=== PATIENT | female | born 1940 | race Caucasian/White ===

== ENCOUNTER 2021-07-20 07:25 | Inpatient (IN) | payer OTHER, MEDICAID, SELFPAY ==
[~2021-07-20] VITALS: Ht 167.6 cm; Wt 83.5 kg
[2021-07-20 07:25] VITALS: BP_SYST 77
--- NOTE | 2021-07-20 07:25 | NUR ---
DR. SONG AT BEDSIDE FOR MSE
--- NOTE | 2021-07-20 07:26 | NUR ---
PT BIB ALS FROM SNF C/O RESPIRATORY DISTRESS. SPO2 90% AT SNF ON NRB. NONVERBAL, A/O x0 BASELINE. ARRIVED INTUBATED BY EMS BAGGED VIA BVM.
--- NOTE | 2021-07-20 07:30 | NUR ---
# 20 gauge angiocath placed to RFA. Use of asceptic technique. Opsite placed over site. Blood return noted. Flushed with 10 cc of normal saline. No evidence of infiltration noted. Patient tolerated well.
[2021-07-20] MEDS ORDERED: fentaNYL CITRATE/PF 100 MCG/2 ML AMP ONE (08:03)
--- NOTE | 2021-07-20 08:19 | NUR ---
# 16 FR Bardales catheter with use of sterile technique. Immediate return of 50 cc YELLOW urine noted. Bedside drainage bag placed below level of bladder. Urine sample collected and sent to lab. Pt tolerated procedure WELL.
--- NOTE | 2021-07-20 08:23 | NUR ---
CENTRAL LINE PLACED BY DR. SONG. XRAY AT BEDSIDE FOR CONFIRMATION.
[2021-07-20] MEDS ORDERED: fentaNYL CITRATE/PF 100 MCG/2 ML AMP IVP ONE (08:30)
[2021-07-20] MEDS ORDERED: NACL 0.9% 2,000 ML IV ONE (08:30)
[2021-07-20 08:31] LABS: BILIRUBIN,URINE NEGATIVE (NEGATIVE); BLOOD, URINE 3+ (NEGATIVE); CLARITY/URINE CLOUDY (CLEAR); COLOR,URINE YELLOW (YELLOW); GLUCOSE,URINE TRACE (NEGATIVE); KETONES,URINE TRACE (NEGATIVE); LEUKOCYTE ESTERASE ,URINE 3+ (NEGATIVE); NITRITE, URINE NEGATIVE (NEGATIVE); PROTEIN URINE TRACE (NEGATIVE); UROBILINOGEN,URINE 0.2 (0.2-1.0)
[2021-07-20] MEDS ORDERED: NOREPINEPHRINE 4 MG/4 ML VIAL IV ONE ×6 (08:31→16:52)
[2021-07-20 08:42] LABS: BASOPHILS % (AUTO) 0.6 % (0.0-2.0); HEMATOCRIT 45.5 % (36-48); HEMOGLOBIN 14.7 g/dL (12.0-16.0); LYMPHOCYTES # (AUTO) 2.4 K/uL (1.0-5.5); LYMPHOCYTES % (AUTO) 35.1 % (20.5-51.5); MEAN CORPUSCULAR HEMOGLOBIN 30 pg (27-31); MEAN CORPUSCULAR HGB CONC 32 % (32-36); MEAN CORPUSCULAR VOLUME 93 fL (79.0-98.0); MONOCYTES # (AUTO) 0.4 K/uL (0.0-1.0); MONOCYTES % (AUTO) 5.6 % (1.7-9.3); NEUTROPHILS % (AUTO) 58.7 % (40.0-70.0); PLATELET COUNT (AUTO) 327 K/uL (130-430); RED BLOOD CELL COUNT(AUTO) 4.89 MIL/uL (4.2-6.2); RED CELL DISTRIBUTION WIDTH 16.2 % (9.0-15.0); WHITE BLOOD COUNT (AUTO) 6.9 K/uL (4.8-10.8)
[2021-07-20] MEDS ORDERED: NOREPINEPHRINE BITARTRATE 4 MG in NS 246 ML IV ONE (08:45)
[2021-07-20] MEDS ORDERED: NACL 0.9% 500 ML IV ONE (08:45)
[2021-07-20] MEDS ORDERED: ACETAMINOPHEN 325 MG TABLET GT ONE (08:45)
[2021-07-20] MEDS ORDERED: NOREPINEPHRINE BITARTRATE 4 MG in NS 246 ML IV PRN (08:45)
[2021-07-20 08:52] LABS: ALANINE AMINOTRANSFERASE 70 U/L (12-78); ALBUMIN 2.8 g/dL (3.4-4.8); ANION GAP 17 (5-15); ASPARTATE AMINOTRANSFERASE 50 U/L (10-37); CHLORIDE 114 mmol/L (98-107); CREATININE 2.18 mg/dL (0.55-1.30); SODIUM SERUM 151 mmol/L (136-145); TOTAL BILIRUBIN 0.6 mg/dL (0.0-1.0); UREA NITROGEN, BLOOD 57 mg/dL (8-21)
[2021-07-20 08:56] LABS: GLUCOSE 534 mg/dL (70-99)
[2021-07-20] MEDS ORDERED: CEFEPIME 1 GM in D5W 50 ML IV ONE (09:00)
[2021-07-20] MEDS ORDERED: VANCOMYCIN HCL 1,000 MG in NS 250 ML IV ONE (09:00)
--- NOTE | 2021-07-20 09:00 | NUR ---
B/P 78/29, HR 145. Levophed drip started at 0.1 mcg/kg/min.
--- NOTE | 2021-07-20 09:05 | NUR ---
REPORT GIVEN TO KARINA HOWARD
[2021-07-20] MEDS ORDERED: IOHEXOL 350 mgI/mL, 150 ML INFUS..BTL IV ONE (09:22)
--- NOTE | 2021-07-20 10:00 | NUR ---
Unable to obtain blood pressure from multiple sites. Dr. Rajput made aware. Levophed drip rate increased to 0.2 mcg/kg/min.
[2021-07-20 10:01] LABS: BACTERIA,URINE MODERATE /HPF (None Seen); WBC,URINE 50-80 /HPF (0-3)
[2021-07-20 10:04] LABS: YEAST,URINE Moderate /HPF (None Seen)
--- NOTE | 2021-07-20 10:20 | NUR ---
Rocío anthony in EDM - 07/20/21 at 1948 by MONICO B/P 61/30, HR 125, SPO2 88%. Levophed drip rate increased to 0.2 mcg/kg/min.
[2021-07-20] MEDS ORDERED: CEFEPIME 1 GM/VIAL (MAXIPIME) ONE ×3 (10:45→19:31)
[2021-07-20] MEDS ORDERED: VANCOMYCIN HCL 1000 MG/VIAL IV ONE (10:50)
[2021-07-20] MEDS ORDERED: INSULIN REGULAR, HUMAN 10 UNITS/0.1 ML INJ IVP ONE (12:30)
[2021-07-20] MEDS: NACL 0.9% 1,000 ML IV SCH ×2 (12:45→19:54)
[2021-07-20] MEDS ORDERED: PHENYLEPHRINE HCL 50 MG in NS 245 ML IV ONE (13:00)
[2021-07-20] MEDS ORDERED: PHENYLEPHRINE HCL 10 MG/ML VIAL (NEOSYNEPHRINE) ONE (13:02)
--- NOTE | 2021-07-20 13:18 | NUR ---
HR 113, B/P 62/38, Levophed at max rate of 1 mcg/kg/min. Dr. Rajput notified. Neosynephrine drip now infusing at 0.5 mcg/kg/min.
[2021-07-20] MEDS ORDERED: ACETAMINOPHEN 650 MG SUPP.RECT RC PRN (13:45)
[2021-07-20] MEDS ORDERED: INSULIN REGULAR, HUMAN 100 UNITS/ML, 10 ML VIAL (humuLIN R) SUBCUT PRN (13:45)
[2021-07-20] MEDS ORDERED: PIPERACILLIN/TAZO 3.375/DEX-IS 50 ML IV SCH (13:45)
--- NOTE | 2021-07-20 13:47 | NUR ---
Rocío anthony in EDM - 07/20/21 at 1948 by MONICO B/P 63/32, HR 100, SPO2 88%. Levophed drip rate increased to 0.3 mcg/kg/min.
--- NOTE | 2021-07-20 14:04 | NUR ---
Rocío anthony in EDM - 07/20/21 at 1948 by MONICO B/P 62/46, HR 95, SPO2 88%. Levophed drip rate increased to 0.22 mcg/kg/min.
--- NOTE | 2021-07-20 14:11 | NUR ---
Accucheck 330 mg/dL. Humulin R Insulin 8 Units given IVP as previously ordered.
--- NOTE | 2021-07-20 14:25 | NUR ---
Dr. Griffin notified of pt.'s B/P and that Levophed and Neosynephrine are both infusing at max doses. Solumedrol 60 mg given IVP per verbal order.
[2021-07-20] MEDS ORDERED: methylPREDNISolone SOD SUCC/PF 62.5 MG/ML VIAL ONE (14:27)
[2021-07-20] MEDS ORDERED: methylPREDNISolone SOD SUCC/PF 62.5 MG/ML VIAL IVP ONE (14:30)
[2021-07-20] MEDS ORDERED: SODIUM BICARBONATE 8.4% JECT 150 MEQ in D5W 1,000 ML IVP SCH (16:30)
[2021-07-20] MEDS ORDERED: SODIUM BICARBONATE 8.4% JECT 50 MEQ/50 ML SYRINGE IVP ONE (16:30)
[2021-07-20] MEDS ORDERED: HYDROCORTISONE SOD SUCC 100 MG/2 ML VIAL IVP ONE (16:30)
[2021-07-20] MEDS ORDERED: NACL 0.9% 1,000 ML IV ONE (16:30)
[2021-07-20 17:14] LABS: ANION GAP 23 (5-15); CALCIUM 8.3 mg/dL (8.4-11.0); CREATININE 2.36 mg/dL (0.55-1.30); GLUCOSE 346 mg/dL (70-99); POTASSIUM 5.1 mmol/L (3.5-5.1); SODIUM SERUM 157 mmol/L (136-145); UREA NITROGEN, BLOOD 55 mg/dL (8-21)
[2021-07-20] MEDS ORDERED: SODIUM BICARBONATE 8.4% JECT 50 MEQ/50 ML SYRINGE ONE (17:15)
[2021-07-20 17:38] LABS: CHLORIDE 120 mmol/L (98-107)
--- NOTE | 2021-07-20 17:41 | NUR ---
Dr. Griffin called and informed of Chloride 120. No new orders received
[2021-07-20] MEDS ORDERED: methylPREDNISolone SOD SUCC/PF 62.5 MG/ML VIAL IVP SCH (18:00)
[2021-07-20] MEDS ORDERED: ALBUMIN HUMAN 25% 100 ML IV ONE (18:15)
[2021-07-20] MEDS: INSULIN REGULAR, HUMAN 100 UNITS/ML, 10 ML VIAL (humuLIN R) SUBCUT PRN ×2 (18:16→19:40)
--- NOTE | 2021-07-20 19:12 | NUR ---
Pt continues to be unresponsive, pale with cool and mottled skin. ETT secure, vent settings: A/C, 16, 450, 100, 5. Triple lumen LIJ central line with Levophed and Phenylephrine, NS at 125 mL/hr, and Bicarb drip at 125 mL/hr. G-tube patent and secure. F/C with only 200 mL cloudy yellow U/O this shift. V/S: HR 93, B/P 68/21, SPO2 86%. Dr. Ramosium aware of pt current status. Awaiting ICU bed placement. Pt report given to ANITA Feliciano.
--- NOTE | 2021-07-20 19:12 | NUR ---
Assumed care of patient at change of shift. Patient currently intubated w/ vent settings of: VT 400, fio2 100% AC 16. Patient currently on Jude/Syn gtt at 3.5mcg/kg/min=87.5ml/hr to left subclavian central line. Patient also on levophed gtt at 1.3mcg/kg/min= 205ml/hr to left subclavian central line. NaHco3 gtt at 125ml/hr to left subclavian central line. NS infusion at 125ml/hr. f/c to gravity, patient w/ gt patent. Bed to low position sr up, continue to monitor.
--- NOTE | 2021-07-20 19:35 | NUR ---
acck noted at 252 will coverage as ordered. patient started on iv abx maxipime 1gm will observe for any adverse reaction. Bed to low position sr up, continue to monitor.
[2021-07-20 19:40] VITALS: BP_SYST 63
--- NOTE | 2021-07-20 20:25 | NUR ---
patient noted w/ faint femoral pulse and no b/p. Still remains on drips and vent. MD Null on phone w/ family who stated that patient is DNR. patient family enroute to ER. Per MD Null maintain current plan but await family decision to discontinue vent and gtts.
--- NOTE | 2021-07-20 20:30 | NUR ---
patient pronounced by MD Null. Family at bedside and confirmed that patient is dnr.
--- NOTE | 2021-07-20 20:50 | NUR ---
patient family at bedside. MD Null at bedside.
[2021-07-20] MEDS ORDERED: CEFEPIME 1 GM in D5W 50 ML IV SCH (21:00)
--- NOTE | 2021-07-20 21:15 | NUR ---
Rocío chengmaribell in ED - 07/20/21 at 2123 by [email or web address] patient pronounced by MD Null. at bedside and confirmed that patient is dnr.
--- NOTE | 2021-07-20 21:45 | NUR ---
[facility] procurement agency contacted by . Case # [id number]. S/W Ketty. Patient is not a candidate for [place]. [place] [facility] [place] [facility]
--- NOTE | 2021-07-20 21:58 | NUR ---
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 Family notified by MD Null.
--- NOTE | 2021-07-20 22:20 | NUR ---
Erich Tyler called s/w karen [phone]. poultry picker of patient remains (body) in approx 2 hours Nursing want ad supervisor notified.
--- NOTE | 2021-07-20 23:28 | NUR ---
patient placed in morgue body bag (right toe tied, tag outside of bag, personal effects with patient).
== END 2021-07-20 23:33 | DRG 871 ==
LOC: SED 07:25 → STU 12:41 → SIC 21:47
PROVIDERS: ADMIT Family Medicine; ATTEND Family Medicine
PROC: 5A1935Z Respiratory Ventilation, Less than 24 Consecutive Hours (ICD-10-PCS; principal; 2021-07-20)
PROC: 02HV33Z Insertion of Infusion Device into Superior Vena Cava, Percutaneous Approach (ICD-10-PCS; 2021-07-20)
PROC: B548ZZA Ultrasonography of Superior Vena Cava, Guidance (ICD-10-PCS; 2021-07-20)
PROC: 0BH17EZ Insertion of Endotracheal Airway into Trachea, Via Natural or Artificial Opening (ICD-10-PCS; 2021-07-20)
DX: A41.9 Sepsis, unspecified organism (principal); R65.21 Severe sepsis with septic shock; J96.00 Acute respiratory failure, unspecified whether with hypoxia or hypercapnia; N39.0 Urinary tract infection, site not specified; N17.9 Acute kidney failure, unspecified; E86.0 Dehydration; E11.9 Type 2 diabetes mellitus without complications; I25.10 Atherosclerotic heart disease of native coronary artery without angina pectoris; E78.5 Hyperlipidemia, unspecified; Z20.822 Contact with and (suspected) exposure to COVID-19; I10 Essential (primary) hypertension; F03.90 Unspecified dementia, unspecified severity, without behavioral disturbance, psychotic disturbance, mood disturbance, and anxiety; Z88.0 Allergy status to penicillin; Z79.899 Other long term (current) drug therapy
CPT/HCPCS: 71045; 80048; 80053; 81000; 82803-TC; 82962; 83605; 83880; 84484; 85025; 87040; 87081; 87086; 87186-TC; 93306; 93978; 94002; 94640; 96361; 96365; 96368; 96375; 99291; J0692; J1720; J1815; J2370; J2930; J3010; J3370; J7050; J7060; Q9967